=== PATIENT | male | born 1995 | race Caucasian/White ===

== ENCOUNTER 2017-11-19 13:59 | Emergency (ER) | payer BC ==
[2017-11-19] MEDS ORDERED: LACTULOSE 20 GM/30 ML CUP PO ONE (14:59)
[2017-11-19] MEDS ORDERED: BISACODYL 10 MG SUPP RECTAL STA (15:00)
[2017-11-19] MEDS ORDERED: MAGNESIUM CITRATE 296 ML BOTTLE PO ONE (15:00)
--- NOTE | 2017-11-19 15:02 | ED ---
Abdominal Pain HPI - General Chief Complaint: Abdominal Pain Stated Complaint: Constipated Time Seen by Provider: 11/19/17 14:38 Source: patient Mode of arrival: ambulatory Limitations: no limitations - History of Present Illness Initial Comments: Patient is a 22-year-old male presenting for constipation like symptoms. He states that for the last couple weeks, he has been having decreased bowel movements. He states that this all started after he was drinking protein shakes solutions when he went to a chiropractor about a week ago and had an adjustment but that did not help. He also states that he told some Dulcolax and this helped in that he had more watery stools but still no solid formed stools. He also admits to some mild abdominal cramping that started earlier today that is across his lower abdomen. He is unable to give the specifics about it and states that he has follow-up with the GI doctor on . He denies any testicle pain, nausea/vomiting and states that he has been able to pass gas intermittently. - Related Data Previous Rx's Medication Instructions Recorded Hydrocodone/Acetaminophen [Tracy 1 tab PO Q6HR PRN #20 tab 02/15/16 5-325] Sulfamethox-Tmp 800-160Mg [Bactrim 1 each PO Q12HR #20 tab 02/15/16 Ds] Allergies Allergy/AdvReac Type Severity Reaction Status Date / Time No Known Allergies Allergy Verified 11/19/17 14:05 Review of Systems ROS Statement: Those systems with pertinent positive or pertinent negative responses have been documented in the HPI. Constitutional: Negative for chills, fatigue and fever. HENT: Negative for congestion. Respiratory: Negative for chest tightness, shortness of breath and wheezing. Negative for cough Cardiovascular: Negative for chest pain and palpitations. Gastrointestinal: Positive for abdominal pain and constipation. Negative for abdominal distention, diarrhea, nausea and vomiting. Genitourinary: Negative for dysuria. Musculoskeletal: Negative for back pain, neck pain and neck stiffness. Skin: Negative for color change. Neurological: Negative for dizziness, speech difficulty, weakness and light- headedness. Psychiatric/Behavioral: Negative for agitation and confusion. Negative for anxiety ROS Other: All systems not noted in ROS Statement are negative. Past Medical History Past Medical History: No Reported History History of Any Multi-Drug Resistant Organisms: None Reported Past Surgical History: No Surgical Hx Reported Past Psychological History: No Psychological Hx Reported Smoking Status: Never smoker Past Alcohol Use History: None Reported Past Drug Use History: None Reported General Exam - General Exam Comments Initial Comments: Constitutional: Pt is oriented to person, place, and time. Pt appears well- developed and well-nourished. No distress. HENT: Head: Normocephalic and atraumatic. Eyes: EOM are normal. Neck: Normal range of motion. Neck supple. Cardiovascular: Normal rate, regular rhythm, S1 normal, S2 normal and normal heart sounds. Exam reveals no gallop and no friction rub. No murmur heard. Pulmonary/Chest: Effort normal and breath sounds normal. No tachypnea and no bradypnea. No respiratory distress. No wheezes or rales noted. Abdominal: Soft. Bowel sounds are normal. Pt exhibits no shifting dullness, no distension, no pulsatile liver, no fluid wave, no abdominal bruit and no ascites. There is no tenderness. There is no rigidity, no rebound, no guarding, no tenderness at McBurney's point and negative Gan's sign. Musculoskeletal: Normal range of motion. Neurological: Pt is alert and oriented to person, place, and time. No cranial nerve deficit. Skin: Skin is warm and dry. No rash noted. Pt is not diaphoretic. No erythema. No pallor. Psychiatric: Pt has a normal mood and affect. Pt behavior is normal. Thought content normal. Limitations: no limitations Course Vital Signs 11/19/17 11/19/17 14:03 15:21 Temperature 98.4 F 97 F L Pulse Rate 66 60 Respiratory 20 18 Rate Blood Pressure 120/78 120/60 O2 Sat by Pulse 98 100 Oximetry Medical Decision Making - Medical Decision Making Physical exam had no abdominal tenderness and therefore advanced imaging a plain films were not completed. Patient had no testicular pain or urinary complaints and therefore urine sample was not also obtained. Patient was given magnesium citrate, lactulose, Dulcolax and advised that this is very good treatment regimen for constipation. However, he was also advised other etiology cannot be completely excluded and he would need close follow-up. Patient did state that he had an appointment already with the GI doctor in the next couple days. Additionally, the patient currently declined a rectal exam and therefore still burning could not be determined from a SUMANTH. Patient was noted to be resting in bed comfortably in no acute distress throughout his ED stay and he was advised to follow-up in the next 1-2 days with his PCP at the very minimum. Patient was agreeable plan. Disposition Clinical Impression: Abdominal pain Disposition: HOME SELF-CARE Condition: Good Instructions: Abdominal Pain (ED) Is patient prescribed a controlled substance at d/c from ED?: No Referrals: None,Stated [Primary Care Provider] - 1-2 days Time of Disposition: 15:03
[2017-11-19 15:23] VITALS: BP 120/60; PULSE 60; RESP 18; TEMP 97
== END 2017-11-19 15:22 | disposition home or self-care (01) ==
LOC: EC 13:59
DX: R10.9 Unspecified abdominal pain (principal)
CPT/HCPCS: 99283

== ENCOUNTER → 2017-11-24 | Outpatient (CLI) | payer BC ==
[2017-11-24 15:52] LABS: Basophils % (A) 0 %; Eosinophils # (A) 0.1 k/uL (0-0.7); Eosinophils % (A) 2 %; HCT 46.2 % (39.0-53.0); Lymphocytes # (A) 1.8 k/uL (1.0-4.8); Lymphocytes % (A) 40 %; MCH 27.9 pg (25.0-35.0); MCHC 32.4 g/dL (31.0-37.0); MCV 86.3 fL (80.0-100.0); Mean Platelet Volume 7.4; Monocytes # (A) 0.3 k/uL (0-1.0); Monocytes % (A) 6 %; Neutrophils # (A) 2.3 k/uL (1.3-7.7); Neutrophils % (A) 50 %; Platelet Count 206 k/uL (150-450); RBC 5.36 m/uL (4.30-5.90); WBC 4.6 k/uL (3.8-10.6)
[2017-11-24 16:09] LABS: ALT 41 U/L (21-72); AST 38 U/L (17-59); Albumin 4.5 g/dL (3.5-5.0); Alkaline Phosphatase 48 U/L (38-126); Anion Gap 10 mmol/L; Blood Urea Nitrogen 11 mg/dL (9-20); Carbon Dioxide 28 mmol/L (22-30); Chloride 103 mmol/L (98-107); Glucose 79 mg/dL (74-99); Potassium 4.7 mmol/L (3.5-5.1); Sodium 141 mmol/L (137-145); Total Bilirubin 0.6 mg/dL (0.2-1.3); Total Protein 6.8 g/dL (6.3-8.2)
[2017-11-24 16:24] LABS: T4, Free (Free Thyroxine) 1.13 ng/dL (0.78-2.19)
== END | disposition home or self-care (01) ==
LOC: LABWHC1 14:57
PROVIDERS: ATTEND Physician Assistant
DX: K59.00 Constipation, unspecified (principal)
CPT/HCPCS: 36415; 80053; 84439; 84443; 85025

== ENCOUNTER → 2021-07-02 | Outpatient (CLI) | payer BC ==
--- NOTE | 2021-07-02 08:46 | US ---
EXAMINATION TYPE: US Soft tissue head/neck DATE OF EXAM: 07/02/2021 COMPARISON: NONE CLINICAL HISTORY: R61 HYPERHIDROSIS. Palpable left upper anterior neck noted x 1 year. Left US neck findings at palpable: prominent lymph node is noted at submandibular area =1.8 x 1.2 x 0.7cm with cortical thickness = 0.3cm A/P. IMPRESSION: 1. Area of palpable abnormality corresponds to nonspecific soft tissue nodules measuring 1.8 x 1.2 x 0.7 cm most typical of a small lymph node.
== END | disposition home or self-care (01) ==
LOC: RADUSWWP 08:17
PROVIDERS: ATTEND Family Medicine
DX: R22.1 Localized swelling, mass and lump, neck (principal)
CPT/HCPCS: 76536

== ENCOUNTER 2021-10-15 07:48 | Day surgery (SDC) | payer BC ==
[2021-10-14 08:22] VITALS: BMI 23.7
[~2021-10-15 07:48] MED LIST: LACTATED RINGERS 1,000 ML IV SCH; LIDOCAINE 1% (10MG/ML) FOR IV START INTRADERMA PRN
[2021-10-15 08:14] VITALS: RESP 16; TEMP 97.7
--- NOTE | 2021-10-15 08:26 | P.GSHP ---
History of Present Illness H&P Date: 10/15/21 CHIEF COMPLAINT: Colon screen HISTORY OF PRESENT ILLNESS: The patient is a 26-year-old male who presents for colon screen. Lower endoscopy was offered for further evaluation and management. PAST MEDICAL HISTORY: Please see list. PAST SURGICAL HISTORY: Please see list. MEDICATIONS: Please see list. ALLERGIES: Please see list. SOCIAL HISTORY: No illicit drug use FAMILY HISTORY: No reports of Crohn disease or ulcerative colitis. REVIEW OF ORGAN SYSTEMS: CONSTITUTIONAL: No reports of fevers or chills. PHYSICAL EXAM: VITAL SIGNS: Stable GENERAL: Well-developed pleasant in no acute distress. HEENT: No scleral icterus. Extraocular movements grossly intact. Moist buccal mucosa. NECK: Supple without lymphadenopathy. CHEST: Unlabored respirations. Equal bilateral excursions. CARDIOVASCULAR: Regular rate and rhythm. Distal 2+ pulses. ABDOMEN: Soft, nontender, nondistended. MUSCULOSKELETAL: No clubbing, cyanosis, or edema. ASSESSMENT: 1. Colon screen. PLAN: 1. Recommend proceeding with a lower endoscopy Past Medical History Past Medical History: No Reported History Additional Past Medical History / Comment(s): DIGESTIVE DISORDERS, IBS SYMPTOMS, History of Any Multi-Drug Resistant Organisms: None Reported Past Surgical History: No Surgical Hx Reported Additional Past Surgical History / Comment(s): WISDOM TEETH REMOVED UNDER ANESTHESIA Past Anesthesia/Blood Transfusion Reactions: No Reported Reaction Smoking Status: Former smoker - Past Family History Mother Family Medical History: Deep Vein Thrombosis (DVT) Medications and Allergies Home Medications Medication Instructions Recorded Confirmed Type Psyllium Husk (with Sugar) 575 gm PO DAILY 10/14/21 10/15/21 History [Metamucil Powder] Allergies Allergy/AdvReac Type Severity Reaction Status Date / Time No Known Allergies Allergy Verified 10/15/21 08:13 Surgical - Exam Vital Signs Temp Pulse Resp BP Pulse Ox 97.7 F 64 16 141/63 100 10/15/21 08:13 10/15/21 08:13 10/15/21 08:13 10/15/21 08:13 10/15/21 08:13
[2021-10-15] MEDS ORDERED: fentaNYL (PF) 50 MCG/ML 2 ML AMP ONE (08:59)
[2021-10-15] MEDS ORDERED: PROPOFOL 10 MG/ML 20 ML VIAL IV ONE (08:59)
[2021-10-15] MEDS ORDERED: MIDAZOLAM 2 MG/2 ML VIAL ONE (08:59)
--- NOTE | 2021-10-15 09:41 | P.PCN ---
Date of Procedure: 10/15/21 Description of Procedure: PREOPERATIVE DIAGNOSIS: Change in bowel habits POSTOPERATIVE DIAGNOSIS: Change in bowel habits Microscopic colitis Sigmoid colon polyp OPERATION: Colonoscopy to the cecum, ileocecal valve and appendiceal orifice. Colonoscopy with random cold forceps biopsies for microscopic colitis Colonoscopy with snare polypectomy, sigmoid colon SURGEON: Yuliana Wood MD. ANESTHESIA: MAC. INDICATIONS: The patient is a 26-year-old male who presents with change in bowel habits and family history of gastrointestinal disorders. Colonoscopy also for diagnostic assessment. Benefits and risks were described and informed consent was obtained. DESCRIPTION OF PROCEDURE: The patient had undergone Sutab prep. The patient had been brought into the operating room and laid in the left lateral decubitus position. After adequate intravenous sedation, the rectum was examined with 2% lidocaine jelly. No external hemorrhoids were encountered. The rectal tone was within normal limits. No lesions were palpated in the rectal vault. An Olympus colonoscope was advanced until the cecum, ileocecal valve and appendiceal orifice were clearly viewed. The prep was excellent. No scattered diverticulosis was encountered. Polyp was identified and removed with snare polypectomy. Random biopsies cold forceps were used for microscopic colitis. Retroflexion of the scope demonstrated grade 1 internal hemorrhoids without active bleeding or inflammation. The colon was desufflated. The patient had tolerated the procedure well. Withdrawal time was over 6 minutes. FINDINGS: Aronchick preparation quality scale 1 (1-5) Internal hemorrhoids, grade 1 No external prolapsed hemorrhoids. No arteriovenous malformations. Removal of one polyp: - Snare polypectomy at 25 cm from anal verge, 5 mm polyp, sigmoid colon Random biopsies for microscopic colitis using cold forceps. RECOMMENDATIONS: Lower endoscopy in 2026 Plan - Discharge Summary Discharge Rx Participant: No New Discharge Prescriptions: Continue Psyllium Husk (with Sugar) [Metamucil Powder] 575 gm PO DAILY Discharge Medication List Psyllium Husk (with Sugar) [Metamucil Powder] 575 gm PO DAILY 10/14/21 [History] Follow up Appointment(s)/Referral(s): Yuliana Wood MD [STAFF PHYSICIAN] - 11/03/21 Patient Instructions/Handouts: Colonoscopy (GEN), Colorectal Polyps (GEN) Activity/Diet/Wound Care/Special Instructions: Repeat colonoscopy in years2026 Discharge Disposition: HOME SELF-CARE
[2021-10-15 10:03] VITALS: BP 104/55; PULSE 71
== END 2021-10-15 10:39 | disposition home or self-care (01) ==
LOC: ORWHC2ENDO 07:48
PROVIDERS: ATTEND Surgery Plastic and Reconstructive Surgery
DX: Z12.11 Encounter for screening for malignant neoplasm of colon (principal); K63.5 Polyp of colon; K52.839 Microscopic colitis, unspecified; K64.0 First degree hemorrhoids; Z79.899 Other long term (current) drug therapy; Z82.49 Family history of ischemic heart disease and other diseases of the circulatory system; Z83.79 Family history of other diseases of the digestive system; Z87.891 Personal history of nicotine dependence
CPT/HCPCS: 88305; 45380; 45385; J2250; J3010; J2704